=== PATIENT | male | born 1990 | race African-American/Black ===

== ENCOUNTER 2020-01-05 01:30 | Emergency (ER) | payer MEDICAID ==
[~2020-01-05] VITALS: Ht 165.1 cm; Wt 64.0 kg
[2020-01-05] MEDS ORDERED: ONDANSETRON HCL 4MG/2ML INJ IV STA (02:14)
[2020-01-05] MEDS ORDERED: SODIUM CHLORIDE 0.9% 1,000 ML IV ONE (02:15)
[2020-01-05] MEDS ORDERED: MIDAZOLAM HCL 2 MG/2 ML VIAL IV ONE (02:30)
[2020-01-05 02:50] LABS: CHLORIDE 109 mEq/L (98-107)
[2020-01-05 02:56] LABS: BASOPHILS % 0.5 % (0.0-2.0); EOSINOPHILS % 2.5 % (0.0-5.0); HEMATOCRIT. 38.3 % (42.0-52.0); HEMOGLOBIN. 12.9 g/dL (14.0-18.0); MEAN CORPUSCULAR HEMOGLOBIN 33.5 pg (28.0-32.0); MEAN CORPUSCULAR VOLUME 99.6 fL (80.0-94.0); MEAN PLATELET VOLUME 8.9 fl (7.4-10.4); MONOCYTES % 4.2 % (2.0-8.0); NEUTROPHILS % 48.8 % (40.0-76.0); PLATELET 239 x1000/uL (130-400); RED BLOOD CELL COUNT 3.85 mill/uL (4.7-6.1); RED CELL DISTRIBUTION WIDTH 13.3 % (11.6-14.6)
[2020-01-05] MEDS ORDERED: IOHEXOL-300 100 ML BOTTLE ONE (05:07)
[2020-01-05 09:23] VITALS: BP 108/78
== END 2020-01-05 09:27 | disposition home or self-care (01) ==
LOC: EDBD 02:18 → ER 02:18
DX: S09.90XA Unspecified injury of head, initial encounter (principal); G93.40 Encephalopathy, unspecified; I49.9 Cardiac arrhythmia, unspecified; Y04.0XXA Assault by unarmed brawl or fight, initial encounter; Y93.89 Activity, other specified; Y92.89 Other specified places as the place of occurrence of the external cause; Y99.8 Other external cause status
CPT/HCPCS: 36415; 70450; 70486; 71045; 72125; 74177; 80048; 85025; 86850; 86870; 86900; 86901; 93005; 96361; 96374; 96375; 99291; J2250; J2405; J7030; Q9967; 99285